=== PATIENT | male | born 1960 | race African-American/Black ===

== ENCOUNTER 2019-04-21 18:12 | Emergency (ER) | payer OTHER ==
[~2019-04-21] VITALS: Ht 177.8 cm; Wt 91.0 kg
[2019-04-21] MEDS ORDERED: SODIUM CHLORIDE 0.9% 1,000 ML IV ONE (18:48)
[2019-04-21] MEDS ORDERED: ONDANSETRON HCL 4MG/2ML INJ IV STA (18:48)
[2019-04-21] MEDS ORDERED: KETOROLAC 15MG/ML VIAL IV ONE (19:00)
[2019-04-21 19:30] LABS: BASOPHILS % 0.6 % (0.0-2.0); EOSINOPHILS % 2.2 % (0.0-5.0); HEMATOCRIT. 37.4 % (42.0-52.0); HEMOGLOBIN. 12.5 g/dL (14.0-18.0); MEAN CORPUSCULAR HEMOGLOBIN 28.7 pg (28.0-32.0); MEAN CORPUSCULAR VOLUME 85.9 fL (80.0-94.0); MEAN PLATELET VOLUME 8.6 fl (7.4-10.4); MONOCYTES % 6.8 % (2.0-8.0); NEUTROPHILS % 65.4 % (40.0-76.0); PLATELET 184 x1000/uL (130-400); RED BLOOD CELL COUNT 4.35 mill/uL (4.7-6.1); RED CELL DISTRIBUTION WIDTH 14.8 % (11.6-14.6)
[2019-04-21 19:40] LABS: CHLORIDE 104 mEq/L (98-107)
[2019-04-21 19:44] LABS: ETHANOL BLOOD 194 mg/dL
[2019-04-21] MEDS ORDERED: FENTANYL CITRATE/PF 50MCG/ML 2ML VIAL IV ONE (22:30)
[2019-04-22 01:06] LABS: CLARITY URINE CLEAR (CLEAR); COLOR URINE YELLOW (YELLOW); KETONES URINE TRACE (NEGATIVE); LEUKOCYTE ESTERASE URINE NEGATIVE (NEGATIVE); NITRITE URINE NEGATIVE (NEGATIVE); OCCULT BLOOD URINE NEGATIVE (NEGATIVE); PROTEIN URINE NEGATIVE (NEGATIVE); SPECIFIC GRAVITY URINE 1.013 (1.005-1.030); UROBILINOGEN URINE 0.2 E.U./dL (0.2-1.0)
[2019-04-22 01:25] LABS: *AMPHETAMINES SCREEN URINE NEGATIVE (NEGATIVE); *BARBITURATES SCREEN URINE NEGATIVE (NEGATIVE); *BENZODIAZEPINES SCREEN URINE NEGATIVE (NEGATIVE); *COCAINE SCREEN URINE NEGATIVE (NEGATIVE); METHADONE URINE SCREEN NEGATIVE (NEGATIVE)
[2019-04-22 01:26] LABS: CANNABINOID URINE SCREEN NEGATIVE (NEGATIVE); OPIATES URINE SCREEN NEGATIVE (NEGATIVE); PHENCYCLIDINE URINE SCREEN NEGATIVE (NEGATIVE)
[2019-04-22] MEDS ORDERED: FENTANYL CITRATE/PF 50MCG/ML 2ML VIAL IV ONE (03:30)
[2019-04-22] MEDS ORDERED: ONDANSETRON HCL 4MG/2ML INJ IV ONE (03:30)
[2019-04-22 04:00] VITALS: BP 139/83
== END 2019-04-22 05:04 | disposition short-term general hospital (02) ==
LOC: ER 18:12
DX: S14.109A Unspecified injury at unspecified level of cervical spinal cord, initial encounter (principal); S09.8XXA Other specified injuries of head, initial encounter; G83.9 Paralytic syndrome, unspecified; F10.129 Alcohol abuse with intoxication, unspecified; Y90.6 Blood alcohol level of 120-199 mg/100 ml; W18.39XA Other fall on same level, initial encounter; Y93.89 Activity, other specified; Y92.89 Other specified places as the place of occurrence of the external cause
CPT/HCPCS: 36415; 70450; 70551; 71045; 72125; 72141; 72146; 73130; 80053; 80305; 80320; 81003; 83605; 83880; 84484; 85025; 93005; 96374; 96375; 96376; 99285; J1885; J2405; J3010; J7030; P9612; A4315; G0480